=== PATIENT | male | born 1985 | race Caucasian/White ===

== ENCOUNTER 2018-11-03 18:45 | Emergency (ER) | payer OTHER ==
[~2018-11-03] VITALS: Ht 177.8 cm; Wt 77.1 kg
[2018-11-03 18:45] VITALS: BP 163/16
[2018-11-03] MEDS ORDERED: LIDOCAINE 1%-EPI 1:100,000 20 ML VIAL TP ONE (19:00)
[2018-11-03] MEDS ORDERED: LIDOCAINE 1% INJ 50 ML MDV IJ ONE (19:11)
[2018-11-03] MEDS ORDERED: TDAP [DIPH/PERTUSSIS/TET] 0.5 ML VIAL IM ONE ×2 (19:30→19:37)
[2018-11-03] MEDS ORDERED: LIDOCAINE 1%-EPI 1:100,000 20 ML VIAL ONE (19:37)
== END 2018-11-03 20:09 | disposition home or self-care (01) ==
LOC: ER 18:58
DX: L02.414 Cutaneous abscess of left upper limb (principal); Z23 Encounter for immunization
CPT/HCPCS: 10060; 90471; 90715; 99283; A4606; A6402; J3490 ×2; Z7610

== ENCOUNTER 2018-11-07 15:30 | Emergency (ER) | payer OTHER ==
[~2018-11-07] VITALS: Ht 177.8 cm; Wt 73.9 kg
[2018-11-07 15:33] VITALS: BP 136/93
== END 2018-11-07 17:14 | disposition home or self-care (01) ==
LOC: ER 15:35
DX: L03.114 Cellulitis of left upper limb (principal); F17.200 Nicotine dependence, unspecified, uncomplicated
CPT/HCPCS: A4606; Z7610

== ENCOUNTER 2019-03-11 15:22 | Emergency (ER) | payer OTHER ==
[~2019-03-11] VITALS: Ht 180.3 cm; Wt 77.1 kg
[2019-03-11 15:41] VITALS: BP 152/93
[2019-03-11] MEDS ORDERED: LIDOCAINE 1%-EPI 1:100,000 20 ML VIAL ONE (15:58)
--- NOTE | 2019-03-11 16:52 | NUR ---
INCISION AND DRAINAGE DON BY PATRICIA JACOBO NP.
--- NOTE | 2019-03-11 17:00 | NUR ---
Patient discharged to home in stable condition. Written and verbal after care instructions given. Patient verbalizes understanding of instruction.
== END 2019-03-11 17:01 | disposition home or self-care (01) ==
LOC: ER 15:22
DX: L02.416 Cutaneous abscess of left lower limb (principal); L03.116 Cellulitis of left lower limb; F17.200 Nicotine dependence, unspecified, uncomplicated
CPT/HCPCS: 10060; 99283; J3490

== ENCOUNTER 2019-05-01 14:20 | Emergency (ER) | payer OTHER ==
[~2019-05-01] VITALS: Ht 180.3 cm; Wt 77.1 kg
[2019-05-01] MEDS ORDERED: DEXAMETHASONE SOD PHOSPHATE 4 MG/ML VIAL IM ONE (15:00)
[2019-05-01] MEDS ORDERED: KETOROLAC TROMETHAMINE INJ 60 MG/2 ML VIAL IM ONE ×2 (15:00→15:15)
--- NOTE | 2019-05-01 15:10 | NUR ---
PATIENT ARRIVED AT UNIT AMBULATORY WITH C/O BACK PAIN FOR 1 WEEK
[2019-05-01] MEDS ORDERED: DEXAMETHASONE SOD PHOSPHATE 10 MG/ML VIAL ONE (15:15)
[2019-05-01 16:09] VITALS: BP 130/80
== END 2019-05-01 16:12 | disposition home or self-care (01) ==
LOC: ER 14:24
DX: M54.5 Low back pain (principal); F17.200 Nicotine dependence, unspecified, uncomplicated
CPT/HCPCS: 96372 ×2; 99283; J1100; J1885

== ENCOUNTER 2019-05-29 18:26 | Emergency (ER) | payer OTHER ==
[~2019-05-29] VITALS: Ht 177.8 cm; Wt 77.1 kg
--- NOTE | 2019-05-29 18:35 | NUR ---
PT PRESENTED TO THE ER WITH A C/O CHRONIC BACK PAIN THAT IS PROGRESSIVELY GETTING WORSE OVER THE LAST 2 WEEKS. PT AMBULATED TO ER 13 WITH A STEADY GAIT.
--- NOTE | 2019-05-29 18:40 | NUR ---
PT STATED THAT HE FELL OFF THE LADDER TODAY FROM A SHORT DISTANCE AND HIS BACK PAIN WORSENED. HE STATED THAT THIS HAPPENED BEFORE AND HE "GOT A COUPLE OF SHOTS" AND THE PAIN WENT AWAY AND HE WAS ABLE TO GO BACK TO WORK. PT STATED THAT IS ALL HE WANTS TODAY. PT WANTS TO BE ABLE TO GO TO WORK TOMORROW.
[2019-05-29] MEDS ORDERED: KETOROLAC TROMETHAMINE INJ 60 MG/2 ML VIAL IM ONE (19:00)
[2019-05-29] MEDS ORDERED: KETOROLAC TROMETHAMINE 15 MG/ML VIAL ONE (19:05)
--- NOTE | 2019-05-29 19:16 | NUR ---
Patient discharged to home in stable condition. Written and verbal after care instructions given. Patient verbalizes understanding of instruction AND RX. PT AMBULATED OUT WITH A STEADY GAIT. VSS
--- NOTE | 2019-05-29 19:16 | NUR ---
PT REC'D MEDICATION ORDERED.
[2019-05-29 19:19] VITALS: BP 139/93
== END 2019-05-29 19:16 | disposition home or self-care (01) ==
LOC: ER 18:26
DX: M54.5 Low back pain (principal); F17.200 Nicotine dependence, unspecified, uncomplicated; W01.0XXA Fall on same level from slipping, tripping and stumbling without subsequent striking against object, initial encounter; Y93.89 Activity, other specified; Y92.89 Other specified places as the place of occurrence of the external cause; Y99.8 Other external cause status
CPT/HCPCS: 96372; 99283; J1885